=== PATIENT | female | born 1990 | race Two or more races ===

== ENCOUNTER → 2017-09-05 | Emergency (ER) | payer OTHER ==
[~2017-09-05] VITALS: Ht 160 cm; Wt 88.5 kg
[~2017-09-05] MED LIST: NASONEX17 GM; ZYRTEC10 M3
== END | disposition home or self-care (01) ==
LOC: ER 11:23
DX: K29.70 Gastritis, unspecified, without bleeding (principal)

== ENCOUNTER 2019-02-24 09:46 | Emergency (ER) | payer OTHER ==
[~2019-02-24] VITALS: Ht 160 cm; Wt 87.1 kg
== END 2019-02-24 19:00 | disposition home or self-care (01) ==
LOC: ER 09:46
DX: B34.8 Other viral infections of unspecified site (principal); G44.89 Other headache syndrome; R50.9 Fever, unspecified

== ENCOUNTER 2019-05-13 14:39 | Emergency (ER) | payer OTHER ==
[~2019-05-13] VITALS: Ht 160 cm; Wt 83.9 kg
[2019-05-13] MEDS ORDERED: KETO10TA2 PO (17:09)
== END 2019-05-13 17:18 | disposition home or self-care (01) ==
LOC: ER 14:39
DX: M94.0 Chondrocostal junction syndrome [Tietze] (principal)

== ENCOUNTER 2024-12-10 13:53 | Emergency (ER) | payer OTHER ==
[~2024-12-10] VITALS: Ht 165.1 cm; Wt 83.9 kg
[~2024-12-10 13:53] MED LIST changes: +KETO10TA2 PO
[2024-12-10 15:08] VITALS: BP 114/69; O2SAT 99
[2024-12-10] MEDS ORDERED: KETOROLAC TROMETHAMINE 60 MG VIAL IM STA (16:24)
[2024-12-10] MEDS ORDERED: METOCLOPRAMIDE HCL 5 MG/ML VIAL IM STA (16:24)
[2024-12-10] MEDS ORDERED: KETOROLAC TROMETHAMINE 60 MG VIAL IM ONE (16:32)
[2024-12-10] MEDS ORDERED: METOCLOPRAMIDE HCL 5 MG/ML VIAL ONE (16:32)
[2024-12-10 17:10] LABS: BASO % 0.8 % (0.1-1.2); EOS # 0.06 (0.04-0.54); EOS % 1.3 % (0.7-7.0); HEMATOCRIT 36.5 % (34.1-44.9); HEMOGLOBIN 12.2 g/dL (11.2-15.7); LYMPH # 0.96 (1.18-3.74); LYMPH % 20.1 % (19.3-53.1); MEAN CORPUSCULAR HEMOGLOBIN 31.4 pg (25.6-32.2); MONO # 0.74 (0.24-0.82); NEUT # 2.96 (1.56-6.13); NEUT % 61.9 % (34.0-71.1); PLATELET COUNT 239 K/uL (163-369); RED BLOOD COUNT 3.88 M/uL (3.93-5.22); RED CELL DISTRIBUTION WIDTH 12.1 % (11.6-14.4)
[2024-12-10 17:12] LABS: MONO % 15.5 % (4.7-12.5)
[2024-12-10 17:35] LABS: INFLUENZA A AG NEGATIVE (NEGATIVE); INFLUENZA B AG NEGATIVE (NEGATIVE)
[2024-12-10 17:47] LABS: COVID-19 AG POSITIVE (NEGATIVE)
== END 2024-12-10 19:25 | disposition home or self-care (01) ==
LOC: ER 13:53
DX: U07.1 COVID-19 (principal); Z91.018 Allergy to other foods